=== PATIENT | male | born 1975 | race Caucasian/White ===

== ENCOUNTER 2017-04-14 05:28 | Emergency (ER) | payer OTHER | END 2017-04-14 07:00 | disposition home or self-care (01) | LOC: ER 05:28 | DX: R55 Syncope and collapse (principal); R25.2 Cramp and spasm; E87.6 Hypokalemia; I10 Essential (primary) hypertension; E78.00 Pure hypercholesterolemia, unspecified; Z79.82 Long term (current) use of aspirin; Z79.899 Other long term (current) drug therapy; Z86.73 Personal history of transient ischemic attack (TIA), and cerebral infarction without residual deficits | CPT/HCPCS: 36415; 96360 ==